=== PATIENT | female | born 1995 | race Caucasian/White ===

== ENCOUNTER 2022-04-14 14:40 | Outpatient (CLI) | payer MEDICAID, SELFPAY ==
[2022-04-14 15:22] VITALS: BP 124/86; PULSE 95; O2SAT 98
[2022-04-14 15:23] VITALS: TEMP 36.6; O2SAT 98
[2022-04-14 15:39] VITALS: BMI 33.6
[2022-04-14 15:51] LABS: Absolute Lymphocyte Count 2.45 X10^3/uL (0.83-4.51); Absolute Neutrophil Count 5.8 X10^3/uL (2.0-7.7); Basophil# 0.02 X10^3/uL; Basophil% 0.2 % (0-1); Eosinophil# 0.07 X10^3/uL; Eosinophils% 0.7 % (0-5); Hematocrit 35.8 % (37-47); Lymphocyte # 2.45 X10^3/ul (0.83-4.51); Mean Corp Hgb Conc 33.5 g/dL (32-36); Mean Corpuscular Hgb 30.1 pg (27.0-32.0); Mean Corpuscular Volume 89.7 fL (81-99); Mean Platelet Vol. 9.7 fl (6.2-12.0); Monocyte# 1.07 X10^3/uL; Monocyte% 11.3 % (0-10); NRBC Flagged by Analyzer 0 % (0-5); Neutrophil # 5.78 X10^3/uL (2.7-7.7); Neutrophil % 61.3 % (47-70); Platelet Count 219 K/mm3 (150-450); RBC Distribution Width SD 38.9 fl (35.1-43.9); Red Blood Count 3.99 M/mm3 (4.2-5.4); White Blood Count 9.4 K/mm3 (4.4-11.0)
[2022-04-14 16:41] LABS: International Normalized Ratio 1.1; Partial Thromboplast Time 29.5 Seconds (24.1-36.2); Prothrombin Time (Protime)PT. 13.5 SECONDS (11.7-14.9)
[2022-04-14 16:42] LABS: Fibrinogen 417 mg/dl (203-444)
--- NOTE | 2022-04-15 17:55 | OB.TRI.NOTE ---
HPI - General General Date of Admission: 04/14/22 Date of Service: 04/14/22 Chief Complaint: fall in HPI Narrative VINITA HERNANDEZ, is a 26 F 3 para 2 at 32-2/7 weeks presented status post fall. She arrived to labor and delivery for observation. Labs were normal. Maternal Data Information Final ADRIANA: 06/07/22 Gestational age: 32 2/7 PFSH PFSH Home Medications famotidine 20 mg tablet 20 mg PO PRN PRN Acid Reflux 04/14/22 [History Last Taken 04/13/22 21:00] jetajkan-flk-Bb-FA 1 mg tablet 1 tab PO DAILY Check with primary doctor 04/14/22 [History Last Taken 04/11/22 10:00] Allergy/AdvReac Type Severity Reaction Status Date / Time Penicillins [PCN] Allergy Hives Verified 04/14/22 15:41 tramadol Allergy Hives Verified 04/14/22 15:41 NST FHR Rate Baby A Baseline: 1101-120 Variability:: Moderate Accelerations:: 15 x 15 Decelerations:: Variable NST Reactive:: Yes FHR Category:: Category I (for > 20 min before d/c) Uterine Activity:: rare ctxs Assessment & Plan (1) 32 weeks gestation of : PLAN: Plan 32 weeks multigravida status post fall. heart tones are category 1. Patient was discharged home to follow-up in the office as scheduled or as needed. Return for signs of symptoms of labor or other concerns.
== END 2022-04-14 19:25 | disposition home or self-care (01) ==
LOC: WP 15:03 → WPOUT 15:06 → WP 15:06
PROVIDERS: Visit Provider Obstetrics & Gynecology
DX: Z04.3 Encounter for examination and observation following other accident (principal); O36.8330 Maternal care for abnormalities of the fetal heart rate or rhythm, third trimester, not applicable or unspecified; Z3A.32 32 weeks gestation of pregnancy
CPT/HCPCS: 36415; 59025; 59050; 85025; 85384; 85610; 85730; 99218; G0378

== ENCOUNTER 2022-05-30 15:45 | Outpatient (CLI) | payer MEDICAID, SELFPAY ==
[2022-05-30 16:06] VITALS: BMI 36.8
[2022-05-30 16:19] VITALS: BP 124/81; PULSE 100; TEMP 36.9; O2SAT 98
[2022-05-30 17:15] LABS: ROM Internal Control Test YES-OK TO RESULT pt. (Internal QC); ROM Patient Test Negative (Negative)
[2022-06-02 09:55] VITALS: TEMP 37.1
[2022-06-02 09:56] VITALS: BP 137/97; PULSE 88
--- NOTE | 2022-06-20 10:22 | OB.TRI.PN ---
Progress Notes Progress Note: at 38w6d.Presented for leakage of fluid. Infrequent contractions. Good movement Laboratory Studies: Laboratory Tests 05/30/22 Range/Units 16:23 Vag Amniotic Fld Detect Negative (Negative) ROM plus negative NST reactive category 1 Assessment & Plan (1) Vaginal discharge: (2) Term : PLAN: Plan no signs of labor D/C home
== END 2022-05-30 18:20 | disposition home or self-care (01) ==
LOC: WPOUT 15:51 → WP 15:52
PROVIDERS: Referring Provider Advanced Practice Midwife; Visit Provider Advanced Practice Midwife
DX: O99.891 Other specified diseases and conditions complicating pregnancy (principal); N89.8 Other specified noninflammatory disorders of vagina; Z3A.38 38 weeks gestation of pregnancy
CPT/HCPCS: 84112; 59025; 59050 ×2; G0378 ×2; 99218

== ENCOUNTER 2022-06-02 09:45 | Inpatient (IN) | payer MEDICAID, SELFPAY ==
[2022-06-02] VITALS (64 sets, daily range): BP systolic 113–148; BP diastolic 60–97; PULSE 73–100; RESP 18; TEMP 36.5–37.3; O2SAT 97–100; BMI 37.0
[2022-06-02] MEDS: LACTATED RINGERS 500 ML 999 ML IV ×2 (10:25→12:55)
[2022-06-02 10:53] LABS: Absolute Lymphocyte Count 2.25 X10^3/uL (0.83-4.51); Absolute Neutrophil Count 7.7 X10^3/uL (2.0-7.7); Basophil# 0.02 X10^3/uL; Basophil% 0.2 % (0-1); Eosinophil# 0.06 X10^3/uL; Eosinophils% 0.5 % (0-5); Hematocrit 37.3 % (37-47); Hemoglobin 12.6 g/dL (12.0-15.0); Lymphocyte # 2.25 X10^3/ul (0.83-4.51); Lymphocyte % 20.4 % (19-41); Mean Corp Hgb Conc 33.8 g/dL (32-36); Mean Corpuscular Volume 85.7 fL (81-99); Mean Platelet Vol. 10.4 fl (6.2-12.0); NRBC Flagged by Analyzer 0 % (0-5); Neutrophil # 7.67 X10^3/uL (2.7-7.7); Neutrophil % 69.4 % (47-70); Platelet Count 231 K/mm3 (150-450); RBC Distribution Width CV 12.8 % (11.6-14.6); RBC Distribution Width SD 39.5 fl (35.1-43.9); Red Blood Count 4.35 M/mm3 (4.2-5.4); White Blood Count 11.1 K/mm3 (4.4-11.0)
[2022-06-02] MEDS: Lactated Ringers 1,000 ML 200 ML IV (10:57)
[2022-06-02 11:02] LABS: Prothrombin Time (Protime)PT. 12.4 SECONDS (11.7-14.9)
[2022-06-02 11:03] LABS: Partial Thromboplast Time 27.4 Seconds (24.1-36.2)
[2022-06-02 11:11] LABS: Amphetamine Urine VISTA NEGATIVE (<1000 ng/mL); Barbiturate Urine VISTA NEGATIVE (< 200 ng/mL); Benzodiazepine Urine VISTA NEGATIVE (< 200 ng/mL); Cocaine Urine VISTA NEGATIVE (< 300 ng/mL); Creatinine, Urine (random) < 13.00 mg/dL (NO RANGE EST.); Ecstacy Urine VISTA NEGATIVE (< 500 ng/mL); Methadone Urine VISTA NEGATIVE (< 300 ng/mL); PCP Urine VISTA NEGATIVE (< 25 ng/mL); Protein, Urine (Random) < 6.0 mg/dL (<11.9); THC Urine VISTA NEGATIVE (< 50 ng/mL); Vista UDS pH Range 6
[2022-06-02 11:13] LABS: AST(SGOT) 13 U/L (15-37); Alanine Aminotransfer ALT/SGPT 14 U/L (13-56); Creatinine, Serum 0.67 mg/dL (0.55-1.02); EST Glomerular Filtration Rate 113 mL/min (>60); Est Glom Filt Rate - Afr Amer 137 mL/min (>60); Estimated Creatinine Clearance 105.26 ml/min; Uric Acid 3.2 mg/dL (2.6-6.0)
[2022-06-02] MEDS: fentaNYL-bupivacaine (epidural) 100 ML BAG EPIDURAL (12:22)
--- NOTE | 2022-06-02 12:31 | PCM.HP.OB ---
HPI - General General Date of Admission: 06/02/22 Date of Service: 06/02/22 Chief Complaint: labor HPI Narrative VINITA HERNANDEZ, is a 26 F who presents in labor. Has had 2 prior vaginal deliveries. Was a transfer of care late in this from [place]. has been uncomplicated. BP's mild range on admission but pt uncomfortable. No symptoms of pre e. Labs normal on admission. [facility] Medical History (Updated 06/02/22 @ 12:[address] Charla Cartagena, ) Gestational diabetes History of pre-term labor depression Scoliosis Home Medications famotidine 20 mg tablet 20 mg PO BID heart burn 04/14/22 [History Last Taken 06/02/22 08:00] zjlszowj-djj-Fz-FA 1 mg tablet 1 tab PO DAILY Check with primary doctor 04/14/22 [History Last Taken 05/29/22 08:00] vitamin M22-[id number] factor 1,000 iu OTHER DAILY 06/02/22 [History Last Taken Unknown] Allergy/AdvReac Type Severity Reaction Status Date / Time Penicillins [PCN] Allergy Hives Verified 06/02/22 11:28 tramadol Allergy Hives Verified 06/02/22 11:28 Social History Smoking Status: Never smoker History Elective abortions Hx Para 2 Spontaneous abortions Hx # Term Pregnancies Ectopic pregnancies Hx # Pregnancies Multiple births # of living children NST FHR Rate Baby A FHR Category:: Category I Vital Signs Vital Signs Vital Signs: 06/02/22 09:56 06/02/22 09:56 06/02/22 09:58 Temperature 98.2 F Temperature Source Pulse Rate 84 Blood Pressure BP Systolic BP Diastolic Pulse Ox 100 06/02/22 09:55 06/02/22 09:55 06/02/22 10:13 Temperature 98.2 F Temperature Source Temporal Pulse Rate Blood Pressure 137/90 H BP Systolic 137 BP Diastolic 90 Pulse Ox 06/02/22 10:13 06/02/22 10:43 06/02/22 10:43 Temperature Temperature Source Pulse Rate 83 82 Blood Pressure 135/91 H BP Systolic 135 BP Diastolic 91 Pulse Ox 06/02/22 11:42 06/02/22 11:42 06/02/22 11:54 Temperature Temperature Source Pulse Rate 90 87 Blood Pressure 134/88 H BP Systolic 134 BP Diastolic 88 Pulse Ox 06/02/22 11:54 06/02/22 11:56 06/02/22 11:57 Temperature 98.2 F Temperature Source Pulse Rate Blood Pressure 131/92 H BP Systolic 131 BP Diastolic 92 Pulse Ox 100 06/02/22 11:57 06/02/22 11:59 06/02/22 11:59 Temperature Temperature Source Pulse Rate 88 86 Blood Pressure BP Systolic BP Diastolic Pulse Ox 99 06/02/22 12:04 06/02/22 12:04 06/02/22 12:09 Temperature Temperature Source Pulse Rate 88 Blood Pressure 123/94 H BP Systolic 123 BP Diastolic 94 Pulse Ox 99 06/02/22 12:09 06/02/22 12:09 06/02/22 12:14 Temperature Temperature Source Pulse Rate 93 83 Blood Pressure BP Systolic BP Diastolic Pulse Ox 98 06/02/22 12:14 06/02/22 12:16 06/02/22 12:16 Temperature Temperature Source Pulse Rate 100 Blood Pressure 140/97 H BP Systolic 140 BP Diastolic 97 Pulse Ox 98 06/02/22 12:19 06/02/22 12:19 06/02/22 12:20 Temperature Temperature Source Pulse Rate 100 Blood Pressure 135/86 H BP Systolic 135 BP Diastolic 86 Pulse Ox 99 06/02/22 12:20 06/02/22 12:24 06/02/22 12:24 Temperature Temperature Source Pulse Rate 90 92 Blood Pressure BP Systolic BP Diastolic Pulse Ox 100 06/02/22 12:30 06/02/22 12:30 06/02/22 12:29 Temperature Temperature Source Pulse Rate 89 Blood Pressure 148/68 H BP Systolic 148 BP Diastolic 68 Pulse Ox 99 Weight Weight: 209 lb 7.026 oz Body Mass Index (BMI) 37.0 Physical Exam Const alert and no apparent distress General Appearance: cooperative Narrative: Cvx 6/90/-2, already ruptured for clear fluid on exam Labs Labs Labs: Blood Type A POSITIVE Antibody Screen NEGATIVE Hct 37.3 % (37-47) Hgb 12.6 g/dL (12.0-15.0) Assessment & Plan (1) 39 weeks gestation of : PLAN: Admit for routine intrapartum care Epidural for pain control GBS neg Pelvis adequate and EFW expected to be < 4500 g Anticipate vaginal delivery (2) Active labor at term: (3) Multiparous: (4) History of marijuana use: PLAN: UDS on admission (5) Elevated blood pressure reading: PLAN: Likely secondary to pain. Labs WNL on admission. No pre e symptoms
[2022-06-02] MEDS: Mag Hydrox/Al Hydrox/Simeth 30 ML UDC PO (14:30)
[2022-06-02] MEDS: Oxytocin 30 units/NS 500 ml 30 UNITS/500 ML IV.SOLN 334 UNITS IV (15:10)
--- NOTE | 2022-06-02 15:15 | EX.PCM.OBRPT ---
Vaginal Delivery Maternal Presentation Maternal Presentation: Spontaneous Rupture of Membranes Maternal Presentation: Active labor Operative Information Date of Procedure: 06/02/22 Pre-Operative Diagnosis: Active Labor Post-Operative Diagnosis: Surgery / Procedure Performed: Spontaneous Vaginal Delivery Type of Anesthesia: Epidural Estimated Blood Loss: 200 ml Time of Delivery: 15:07 Findings Description of Procedure: Progressed to anterior lip and called by nursing for delivery. Patient with increased pelvic pressure. Epidural for pain management. of viable male over intact perineum. APGARS 8,9. head delivered with body forthcoming. CAN x1 loose delivered through. mouth and nares suctioned for secretions, strong cry. Cord clamped and cut by FOB after pulsations ceased. Pitocin started for active 3rd stage management. Placenta delivered intact 3 vessel cord via niraj. Perineum inspected and revealed intact. vaginal sweep completed. Sponge and instrument count correct. Fundus firm, EBL 200ml. Mom and baby stable, planning to breastfeed. Family bonding well. notified of delivery. . Presentation: DAPHNE Amniotic Membrane Rupture Type: Spontaneous Cord Vessel Description: 3 Vessels Cord Entanglement: Around neck x 1, loose Nuchal Cord Compression: Without compression Infant A Gender: Male (1 minute): 8 (5 minute): 9 Delayed Cord Clamping: Yes Post Vaginal Delivery Medications Given After Delivery: IV Pitocin Episiotomy Description: None Laceration: None Complication Complications: None
[2022-06-02] MEDS: 0.9% Saline Lock 10 ML Syringe IV (16:40)
[2022-06-02] MEDS: Acetaminophen 500 MG Tablet 1000 MG PO (16:49)
[2022-06-02] MEDS: Ibuprofen 600 MG Tablet PO (18:12)
[2022-06-03] VITALS (13 sets, daily range): BP systolic 117–134; BP diastolic 60–87; PULSE 79–96; RESP 16–18; TEMP 36.3–37.2; O2SAT 96–98
[2022-06-03] MEDS: Acetaminophen 500 MG Tablet 1000 MG PO ×3 (00:55→13:51)
[2022-06-03] MEDS: Ibuprofen 600 MG Tablet PO ×3 (00:55→13:50)
[2022-06-03 06:36] LABS: Hematocrit 32.4 % (37-47); Hemoglobin 10.4 g/dL (12.0-15.0); Mean Corp Hgb Conc 32.1 g/dL (32-36); Mean Corpuscular Hgb 28.3 pg (27.0-32.0); Mean Platelet Vol. 10.7 fl (6.2-12.0); Platelet Count 194 K/mm3 (150-450); RBC Distribution Width CV 12.7 % (11.6-14.6); RBC Distribution Width SD 40.5 fl (35.1-43.9); Red Blood Count 3.68 M/mm3 (4.2-5.4); White Blood Count 10.3 K/mm3 (4.4-11.0)
--- NOTE | 2022-06-03 07:22 | PN.OBGYN_ITS ---
Subjective Subjective Pt is doing well. Breast-feeding without complaints. Lochia is normal. She is ambulating and voiding without difficulty. Tolerating regular diet. She denies chest pain, shortness of breath, lightheadedness, dizziness. Objective Data Objective Data Vital Signs: Vital Signs Temp Pulse Resp BP Pulse Ox O2 Del Method 98.8 F 80 16 117/65 97 Room Air 06/03/22 05:24 06/03/22 05:25 06/03/22 01:02 06/03/22 05:25 06/03/22 05:24 06/03/22 01:02 Oxygen Delivery Method Room Air Weight: 209 lb 7.026 oz Body Mass Index (BMI) 37.0 Intake & Output: Intake and Output for Last 24 Hours 06/01/22 06/02/22 06/03/22 23:59 23:59 23:59 Intake Total 2890.00 / 2890.00 Output Total 1600 / 1600 Balance 1290.00 / 1290.00 Lab / Micro Data Result Diagrams: 06/03/22 05:35 06/02/22 10:25 Labs: Laboratory Results - last 24 hr 06/02/22 10:25: WBC 11.1 H, RBC 4.35, Hgb 12.6, Hct 37.3, MCV 85.7, MCH 29.0, MCHC 33.8, RDW Std Deviation 39.5, RDW Coeff of Keely 12.8, Plt Count 231, MPV 10.4, Immature Gran % (Auto) 0.500, Neut % (Auto) 69.4, Lymph % (Auto) 20.4, Travis % (Auto) 9.0, Eos % (Auto) 0.5, Baso % (Auto) 0.2, Absolute Neuts (auto) 7.7, Absolute Lymphs (auto) 2.25, Nucleated RBC % 0 06/02/22 10:25: Blood Type A POSITIVE, Antibody Screen NEGATIVE 06/02/22 10:25: PT 12.4, INR 1.0, APTT 27.4 06/02/22 10:25: U Random Total Protein < 6.0, Urine Creatinine < 13.00, Protein/Creatinin Ratio TNP 06/02/22 10:25: Creatinine 0.67, Estim Creat Clear Calc 105.26, Est GFR (MDRD) Af Amer 137, Est GFR (MDRD) Non-Af 113, Uric Acid 3.2, AST 13 L, ALT 14 06/02/22 10:25: Urine Opiates Screen NEGATIVE, Urine Methadone Screen NEGATIVE, Ur Barbiturates Screen NEGATIVE, Ur Phencyclidine Scrn NEGATIVE, Ur Amphetamines Screen NEGATIVE, MDMA (Ecstasy) Screen NEGATIVE, U Benzodiazepines Scrn NEGATIVE, Urine Cocaine Screen NEGATIVE, U Cannabinoids Screen NEGATIVE, Ur Drug Screen Comment 06/03/22 05:35: WBC 10.3, RBC 3.68 L, Hgb 10.4 L, Hct 32.4 L, MCV 88.0, MCH 28.3, MCHC 32.1 D, RDW Std Deviation 40.5, RDW Coeff of Keely 12.7, Plt Count 194, MPV 10.7 Micro: Microbiology 06/02/22 10:25 Nasal Secretion SARS-CoV-2 Antigen (Rapid) - Final Assessment & Plan (1) Vaginal delivery: PLAN: Pt is day 1 from a vaginal delivery. Meeting milestones to go home. She desires to go home. Discharge instructions reviewed.
--- NOTE | 2022-06-03 07:30 | DCINST_ITS ---
Discharge Instructions Diet Discharge Diet: No restrictions Activity Discharge Activity: May Shower May resume sexual activity in: 6 weeks Weight Bearing Status: Weight bearing as tolerated Lifting Restrictions: nothing heavier than baby Dressing / Incision Call your doctor if you observe: Fever of 101 or Higher, Coldness, Increased Pain, Numbness or Tingling, Change in Color, Inability to urinate, Inability to have a bowel movement, Using more than 1 pad per hour, Shortness of breath, Dizziness, Fainting spells, Swelling in the ankles, Chest pain, Increased palpitations (irregular heartbeat), Calf discomfort and Uncontrolled pain Cleanse incision/area with: Soap & Water Follow Up Care When: 6 week visit Test Results: Test results from this visit will be discussed in further detail at your follow- up appointment, if applicable. Discharge Plan Admission Admit Date/Time: 06/02/22 09:45 Primary Reason for Your Visit: delivery Attending Provider: Pearl Malik Instructions Patient Instructions: After a Vaginal Discharge Orders/Prescriptions Prescriptions: New ibuprofen 600 mg tablet 600 mg PO Q6H PRN (Reason: pain) Qty: 30 0RF Discontinued famotidine 20 mg tablet 20 mg PO BID 1 mg Tablet 1 tab PO DAILY vitamin [id number] factor 1,000 iu OTHER DAILY Rx Instructions: takes po daily Disposition Disposition (needs filled in before D/C Order can be placed): Home, Self Care
--- NOTE | 2022-06-03 10:13 | NURSING ---
Pt called this RN to room for clot passed in the toilet, half dollar sized clot noted. Instructed to notify RN if another clot is passed and provided education on clot size when pt is dicharged.
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
--- NOTE | 2022-06-04 13:40 | CASEMGMT ---
Social Work Labor and Delivery Called [facility] children services at [phone] and spoke with Leandra in the intake department. Referral given due to substance exposed in utero based off of records indicating a November 25, 2021 positive drug screen. Brief maternal and infant history is reported including MOB's reports of cessation of marijuana during this and family history of children services with first child. Negative drug screen at delivery and pending meconium for baby. Reported maternal history of depression. Will monitor for meconium drug screen results and if positive call children services back. Otherwise if negative no additional phone call to children services needed, per conversation with Leandra. -Lashell Gomez, STEWART, BEHAVIORAL MODIFICATION ASSISTANT *This note was generated with Invidio dictation software. It may contain incorrect words, spelling, and punctuation that were not noted in review of the chart prior to signing*
== END 2022-06-03 17:55 | disposition home or self-care (01) | DRG 560 ==
PROVIDERS: Obstetrics & Gynecology; Admitting Provider Advanced Practice Midwife; Visit Provider Advanced Practice Midwife
DX: O42.92 Full-term premature rupture of membranes, unspecified as to length of time between rupture and onset of labor (principal); Z37.0 Single live birth; O99.324 Drug use complicating childbirth; F12.99 Cannabis use, unspecified with unspecified cannabis-induced disorder; R03.0 Elevated blood-pressure reading, without diagnosis of hypertension; O26.893 Other specified pregnancy related conditions, third trimester; O69.81X0 Labor and delivery complicated by cord around neck, without compression, not applicable or unspecified; Z3A.39 39 weeks gestation of pregnancy; Z87.59 Personal history of other complications of pregnancy, childbirth and the puerperium
CPT/HCPCS: 59025; 59050; 80307; 82565; 82570; 84112; 84156; 84450; 84460; 84550; 85025; 85027; 85610; 85730; 86850; 86900; 86901; 87426; 99218; J7120; A4216; G0378

== ENCOUNTER 2023-08-05 13:15 | Outpatient (CLI) | payer MEDICAID, SELFPAY ==
[2023-08-05 13:32] VITALS: BP 126/71; PULSE 101; TEMP 36.5
[2023-08-05 13:35] VITALS: BMI 38.2
--- NOTE | 2023-08-05 14:17 | OB.TRI.NOTE ---
HPI - General General Date of Service: 08/05/23 HPI Narrative VINITA HERNANDEZ, is a 28 F @ 30.4 weeks who presents c/o contractions since 6:30 am- reports some are painful. pt reports no VB. states had some Leaking but thinks it was urine as her bladder was full at that time and has had no further leaking since that time. pt denies dysuria, fever, diarrhea or other concerns. pt reports delivered first child early but that was because she was Induced not because she went into labor on her own. [facility] Medical History (Updated 08/05/23 @ 14:[address] Francheska Heard MD) Chlamydia Gestational diabetes Herpes simplex antibody positive History of marijuana use History of pre-term labor Multiparous depression PTSD (post-traumatic stress disorder) Scoliosis Vaginal delivery Home Medications famotidine 20 mg tablet (Pepcid) 20 mg PO BID 08/05/23 [History Last Taken 08/05/23 12:00 20 mg] mhnuymnv-lsr-Lx-FA 1 mg tablet 1 tab PO DAILY 08/05/23 [History Last Taken 08/04/23 08:00 1 TAB] Allergy/AdvReac Type Severity Reaction Status Date / Time Penicillins [PCN] Allergy Hives Verified 08/05/23 13:43 tramadol Allergy Hives Verified 08/05/23 13:43 Social History Smoking Status: Never smoker History Elective abortions Hx Para 2 Spontaneous abortions Hx # Term Pregnancies Ectopic pregnancies Hx # Pregnancies Multiple births # of living children Physical Exam Narrative Gen: female in NAD ABd: Gravid, non tender VE: Closed/Thick/High NST FHR Rate Baby A Baseline: 140 Variability:: Moderate Accelerations:: 10 x 10 Decelerations:: None NST Reactive:: Yes and Appropriate for gestational age FHR Category:: Category I Uterine Activity:: irregular Assessment & Plan (1) 30 weeks gestation of : (2) contractions: PLAN: Plan @ 30.4 weeks, contractions 1) FFN and ROM plus sent 2) UA sent 3) Increase PO fluids 4) monitor FHR/TOCO 5) causes of contractions reviewed with Patient and - will await results and decide plan of care
[2023-08-05 14:19] LABS: Bacteria 0 SEEN /hpf (None Seen); Mucous, Urine 0 SEEN /hpf (<or=2+); Red Blood Cells-Urine 0 SEEN /hpf (0-5); White Blood Cells 0 SEEN /hpf (0-5)
[2023-08-05 14:30] LABS: Color, Urine Yellow (Yellow); Glucose, Dipstick Normal (Normal); Leukocyte Esterase-Dipstick 25 /ul (Negative); Nitrite-Dipstick Negative (Negative); Occult Blood-Urine Negative /ul (Negative); Protein-Dipstick Negative (Negative); Urine Bilirubin Dipstick Negative (Negative); Urine Clarity Clear (Clear); Urine Urobilinogen Normal (Normal)
[2023-08-05 14:31] LABS: Ketone-Dipstick 150 mg/dl (Negative)
[2023-08-05 14:36] LABS: Squamous Epithelial Cells - UA 10-25 SEEN /hpf (5-10)
[2023-08-05 14:42] LABS: ROM Internal Control Test YES-OK TO RESULT pt. (Internal QC); ROM Patient Test Negative (Negative); Record Kit Lot#, ROM+ K1409
[2023-08-05 14:49] LABS: Fetal Fibronectin Negative
--- NOTE | 2023-08-05 14:55 | OB.TRI.PN_ITS ---
Progress Notes Date of Service: 08/05/23 Progress Note: labs resulted- c/w dehydration. will dc patient home with follow up in the office as scheduled. Laboratory Studies: Laboratory Tests 08/05/23 08/05/23 Range/Units 14:10 14:00 Urine Color Yellow (Yellow) Urine Clarity Clear (Clear) Urine pH 7.0 (5.0 - 8.0) Ur Specific [place] 1.010 (1.002-1.030) Urine Protein Negative (Negative) mg/dl Urine Glucose (UA) Normal (Normal) mg/dl Urine Ketones 150 A* (Negative) mg/dl Urine Occult Blood Negative (Negative) /ul Urine Nitrite Negative (Negative) Urine Bilirubin Negative (Negative) mg/dL Urine Urobilinogen Normal (Normal) mg/dl Ur Leukocyte Esterase 25 H (Negative) /ul Urine RBC 0 SEEN (0-5) /hpf Urine WBC 0 SEEN (0-5) /hpf Ur Squamous Epith Cells 10-25 SEEN (5-10) /hpf Urine Bacteria 0 SEEN (None Seen) /hpf Urine Mucus 0 SEEN (<or=2+) /hpf Vag Amniotic Fld Detect Negative (Negative) Fibronectin Negative
--- NOTE | 2023-08-07 01:16 | OB.TRI.NOTE ---
HPI - General General Date of Admission: 08/07/23 Date of Service: 08/07/23 Chief Complaint: contractions HPI Narrative VINITA HERNANDEZ, is a 28 F who presents at 30w4d with contractions. No lof or bv. Good FM. PFSH PFSH Medical History (Updated 08/05/23 @ 14:[address] Francheska Heard MD) Chlamydia Gestational diabetes Herpes simplex antibody positive History of marijuana use History of pre-term labor Multiparous depression PTSD (post-traumatic stress disorder) Scoliosis Vaginal delivery Home Medications famotidine 20 mg tablet (Pepcid) 20 mg PO BID 08/05/23 [History Last Taken 08/05/23 12:00 20 mg] umriylei-sof-Qq-FA 1 mg tablet 1 tab PO DAILY 08/05/23 [History Last Taken 08/04/23 08:00 1 TAB] Allergy/AdvReac Type Severity Reaction Status Date / Time Penicillins [PCN] Allergy Hives Verified 08/05/23 13:43 tramadol Allergy Hives Verified 08/05/23 13:43 Social History Smoking Status: Never smoker History Elective abortions Hx Para 2 Spontaneous abortions Hx # Term Pregnancies Ectopic pregnancies Hx # Pregnancies Multiple births # of living children NST FHR Rate Baby A Baseline: 130 Variability:: Moderate Accelerations:: 15 x 15 Decelerations:: None NST Reactive:: Yes Uterine Activity:: no regular ctx's Assessment & Plan (1) contractions: PLAN: FFN neg ROM neg Cvx unchanged D/c home with return precautions (2) 30 weeks gestation of :
== END 2023-08-05 15:08 | disposition home or self-care (01) ==
LOC: WPOUT 13:17 → WP 13:18
PROVIDERS: Obstetrics & Gynecology; Referring Provider Obstetrics & Gynecology; Visit Provider Obstetrics & Gynecology
DX: O47.03 False labor before 37 completed weeks of gestation, third trimester (principal); Z3A.30 30 weeks gestation of pregnancy
CPT/HCPCS: 59025; 59050; 81001; 82731; 84112; 99221; G0378

== ENCOUNTER 2023-09-21 15:15 | Outpatient (CLI) | payer MEDICAID, SELFPAY ==
[2023-09-21] VITALS (8 sets, daily range): BP systolic 123–144; BP diastolic 81–90; PULSE 83–91; TEMP 36.9; BMI 39.9
[2023-09-21 16:04] LABS: Hematocrit 34.7 % (37-47); Hemoglobin 11.5 g/dL (12.0-15.0); Mean Corp Hgb Conc 33.1 g/dL (32-36); Mean Corpuscular Hgb 29.9 pg (27.0-32.0); Mean Corpuscular Volume 90.1 fL (81-99); Mean Platelet Vol. 10.5 fl (6.2-12.0); Platelet Count 184 K/mm3 (150-450); RBC Distribution Width CV 13.9 % (11.6-14.6); RBC Distribution Width SD 45.2 fl (35.1-43.9); Red Blood Count 3.85 M/mm3 (4.2-5.4)
[2023-09-21 16:12] LABS: Protein, Urine (Random) 20.5 mg/dL (<11.9); Protein:Creat Ratio 203 mg/g CRE (0-200)
[2023-09-21 16:15] LABS: AST(SGOT) 13 U/L (15-37); Alanine Aminotransfer ALT/SGPT 14 U/L (13-56); Creatinine, Serum 0.61 mg/dL (0.55-1.02); EST Glomerular Filtration Rate 125 mL/min (>60); Est Glom Filt Rate - Afr Amer 151 mL/min (>60); Estimated Creatinine Clearance 118.57 ml/min; Uric Acid 3.3 mg/dL (2.6-6.0)
--- NOTE | 2023-09-21 18:27 | OB.TRI.HP_ITS ---
HPI - General General Date of Admission: 09/21/23 Date of Service: 09/21/23 Chief Complaint: elevated BP HPI Narrative VINITA HERNANDEZ, is a presented from the office for eval. Has had mild intermittent [place]. No visual changes. Maternal Data Information Final ADRIANA: 10/10/23 Gestational age: 37 2/7 [facility] Medical History (Updated 09/21/23 @ 18:[address] Connie Osorio MD) Chlamydia Gestational diabetes Herpes simplex antibody positive History of marijuana use History of pre-term labor Multiparous depression PTSD (post-traumatic stress disorder) Scoliosis Vaginal delivery Home Medications famotidine 20 mg tablet (Pepcid) 20 mg PO BID 08/05/23 [History Last Taken 08/05/23 12:00 20 mg] [id number] 1 mg tablet 1 tab PO DAILY 08/05/23 [History Last Taken 08/04/23 08:00 1 TAB] Allergy/AdvReac Type Severity Reaction Status Date / Time Penicillins [PCN] Allergy Hives Verified 09/21/23 17:48 tramadol Allergy Hives Verified 09/21/23 17:48 Social History Smoking Status: Never smoker History Elective abortions Hx Para 2 Spontaneous abortions Hx # Term Pregnancies Ectopic pregnancies Hx # Pregnancies Multiple births # of living children NST FHR Rate Baby A Baseline: 130 Variability:: Moderate Accelerations:: 15 x 15 Decelerations:: None NST Reactive:: Yes FHR Category:: Category I Uterine Activity:: no regular ctxs Assessment & Plan (1) 37 weeks gestation of : PLAN: Blood pressure was mildly elevated when patient appreciated contractions. Otherwise within normal limits. Did not have 2 blood pressures 4 hours apart meeting gestational hypertension diagnosis. Denies any headache now. No evidence of preeclampsia. Discharged home with preeclampsia precautions. Follow-up in the office next week or return if needed. Patient was comfortable with plan.
== END 2023-09-21 17:45 | disposition home or self-care (01) ==
LOC: WPOUT 15:20 → WP 15:20
PROVIDERS: Visit Provider Obstetrics & Gynecology
DX: O99.891 Other specified diseases and conditions complicating pregnancy (principal); R03.0 Elevated blood-pressure reading, without diagnosis of hypertension; Z3A.37 37 weeks gestation of pregnancy
CPT/HCPCS: 36415; 59025; 59050; 82565; 82570; 84156; 84450; 84460; 84550; 85027; 99221; G0378

== ENCOUNTER 2023-10-01 19:50 | Outpatient (CLI) | payer MEDICAID, SELFPAY ==
[2023-10-01 20:11] VITALS: BMI 40.4
[2023-10-01 20:17] VITALS: O2SAT 98
[2023-10-01 20:18] VITALS: BP 132/84; PULSE 85; TEMP 36.9
[2023-10-01 21:06] LABS: ROM Internal Control Test YES-OK TO RESULT pt. (Internal QC); ROM Patient Test Negative (Negative); Record Kit Lot#, ROM+ K1409
--- NOTE | 2023-11-02 18:33 | PCM.PN.CNM ---
Subjective Subjective Presents for possible rupture of membranes. ADRIANA: 10/10/23 Objective Data Objective Data Vital Signs: Vital Signs Temp Pulse BP Pulse Ox 98.4 F 85 132/84 H 98 10/01/23 20:18 10/01/23 20:18 10/01/23 20:18 10/01/23 20:17 Weight: 235 lb 14.314 oz Body Mass Index (BMI) 40.4 NST FHR Rate Baby A Baseline: 125 Variability:: Moderate Accelerations:: 15 x 15 Decelerations:: None Uterine Activity:: None Charges/Coding Addendum Addendum: Assessment completed on 10/03/23 Assessment & Plan (1) Vaginal discharge: PLAN: Plan 1) ROM plus negative 2) False labor 3) D/C home
== END 2023-10-01 21:35 | disposition home or self-care (01) ==
LOC: WPOUT 19:56 → WP 19:57
PROVIDERS: Visit Provider Advanced Practice Midwife
DX: O99.892 Other specified diseases and conditions complicating childbirth (principal); O47.9 False labor, unspecified; N89.8 Other specified noninflammatory disorders of vagina; Z3A.00 Weeks of gestation of pregnancy not specified
CPT/HCPCS: 59025; 59050; 84112

== ENCOUNTER 2023-10-05 11:45 | Inpatient (IN) | payer MEDICAID, SELFPAY ==
[2023-10-05] VITALS (54 sets, daily range): BP systolic 108–149; BP diastolic 57–93; PULSE 73–107; RESP 16; TEMP 36.2–37.2; O2SAT 94–100; BMI 40.4
[2023-10-05] MEDS: Lactated Ringers 1,000 ML 50 ML IV (13:00)
--- NOTE | 2023-10-05 13:06 | PCM.HP.OB ---
HPI - General General Date of Admission: 10/05/23 HPI Narrative VINITA HERNANDEZ, is a 28 F who presents from office for spontaneous onset of labor and CE of 5cm. is complicated by obesity. Maternal Data Information ADRIANA Calculator Estimated Delivery Date Method Current WG Current Estimate 10/10/23 Manual 39w 2d PFSH PFS Medical History Asthma Chlamydia Gestational diabetes Herpes simplex antibody positive History of marijuana use History of pre-term labor Multiparous depression PTSD (post-traumatic stress disorder) Scoliosis Vaginal delivery Home Medications famotidine 20 mg tablet (Pepcid) 20 mg PO BID indigestion 08/05/23 [History Last Taken 10/05/23 08:00] [id number] 1 mg tablet 1 tab PO DAILY 08/05/23 [History Last Taken 10/04/23 08:00] albuterol sulfate 1 puff inhalation asthma 10/01/23 [History Last Taken Unknown] Allergy/AdvReac Type Severity Reaction Status Date / Time Penicillins [PCN] Allergy Hives Verified 10/05/23 12:12 tramadol Allergy Hives Verified 10/05/23 12:12 codeine AdvReac Mild Other Verified 10/05/23 12:13 Social History Smoking Status: Never smoker History Elective abortions Hx Para 3 Spontaneous abortions Hx # Term Pregnancies Ectopic pregnancies Hx # Pregnancies Multiple births # of living children ROS Eyes Eyes: Denies blurry vision, change in vision or spots in vision ENT HEENT: Denies dizziness or headache(s) Cardiovascular Cardiovascular: Denies abdominal pain, chest pain or dyspnea Respiratory/Chest Respiratory/Chest: Denies cough, dyspnea, shortness of breath at rest or shortness of breath with exertion Gastrointestinal Gastrointestinal: Denies abdominal pain, diarrhea or vomiting Genitourinary Genitourinary: Denies change in urinary stream, difficulty urinating or dysuria Musculoskeletal Musculoskeletal: Reports none Integumentary Integumentary: Denies rash Neurologic Neurologic: Denies dizziness, headache(s), memory loss or weakness Psychiatric Psychiatric: Reports none Vital Signs Vital Signs Vital Signs: 10/05/23 12:19 10/05/23 12:19 10/05/23 12:19 Temperature Temperature Source Temporal Pulse Rate 96 Blood Pressure 136/93 H BP Systolic 136 BP Diastolic 93 Pulse Ox 10/05/23 12:19 10/05/23 12:19 Temperature 98.8 F Temperature Source Pulse Rate Blood Pressure BP Systolic BP Diastolic Pulse Ox 98 Weight Weight: 235 lb 7.259 oz Body Mass Index (BMI) 40.4 Physical Exam Const alert, oriented x3 and no apparent distress General Appearance: cooperative Orientation / Consciousness: awake Exam Limitations: no limitations HEENT normocephalic Head and Scalp: normal to inspection Eyes General Eye: normal appearance of both eyes Neck full ROM and no lymphadenopathy Lymph Lymphatic: no lymphadenopathy noted Chest inspection of chest normal Resp normal respiratory effort, normal air movement and clear to auscultation bilaterally Effort and Inspection: able to speak in complete sentences and symmetric chest movement Cardio regular rate and regular rhythm GI normal to inspection, nondistended, normoactive bowel sounds Manual OB Exam: presentation cephalic Back/Spine normal ROM Extremity full ROM and no calf tenderness Skin no rashes or lesions noted General Skin Exam: no breakdown Neuro oriented x3 and CN's II-XII intact bilaterally Psych mental status grossly normal and thought process normal Labs Labs Labs: Blood Type A POSITIVE Antibody Screen NEGATIVE Hct 36.6 % (37-47) L Hgb 11.9 g/dL (12.0-15.0) L Syphilis Total Ab Non-reactive Assessment & Plan (1) Spontaneous onset of labor: (2) Obesity affecting : (3) Multiparous: PLAN: Plan CE- 5/70/-2 GBS negative Admit to labor and delivery Routine labs Start IV and run fluids per orders Start Pitocin at 2mu/min and increase per policy Epidural when indicated Anticipate Dr. Osorio notified of admission and is collaborating physician
[2023-10-05 13:20] LABS: Absolute Lymphocyte Count 1.91 X10^3/uL (0.83-4.51); Basophil# 0.02 X10^3/uL; Basophil% 0.2 % (0-1); Eosinophil# 0.03 X10^3/uL; Eosinophils% 0.3 % (0-5); Hematocrit 36.6 % (37-47); Hemoglobin 11.9 g/dL (12.0-15.0); Lymphocyte # 1.91 X10^3/ul (0.83-4.51); Lymphocyte % 22.1 % (19-41); Mean Corp Hgb Conc 32.5 g/dL (32-36); Mean Corpuscular Hgb 29.7 pg (27.0-32.0); Mean Corpuscular Volume 91.3 fL (81-99); Mean Platelet Vol. 10.6 fl (6.2-12.0); Monocyte# 0.71 X10^3/uL; Monocyte% 8.2 % (0-10); NRBC Flagged by Analyzer 0 % (0-5); Neutrophil # 5.95 X10^3/uL (2.7-7.7); Neutrophil % 68.7 % (47-70); Platelet Count 187 K/mm3 (150-450); RBC Distribution Width CV 13.9 % (11.6-14.6); RBC Distribution Width SD 46.6 fl (35.1-43.9); Red Blood Count 4.01 M/mm3 (4.2-5.4); White Blood Count 8.7 K/mm3 (4.4-11.0)
[2023-10-05] MEDS: Oxytocin 15 Units/NS 250ml 15 UNITS/250 ML IV.SOLN 2 UNITS IV (13:22)
[2023-10-05 13:55] LABS: Syphilis Antibodies Non-reactive
[2023-10-05] MEDS: CHLORHEXIDINE GLUC 2% CLOTH 1 EACH TOWELETTE TOPICAL (14:03)
[2023-10-05] MEDS: LACTATED RINGERS 500 ML 999 ML IV (14:18)
[2023-10-05] MEDS: fentaNYL-bupivacaine (epidural) 100 ML BAG EPIDURAL (15:44)
--- NOTE | 2023-10-05 16:56 | PCM.PN.CNM ---
Subjective Subjective Patient seen at bedside. Comfortable with epidural anesthesia. Objective Data Objective Data Vital Signs: Vital Signs Temp Pulse BP Pulse Ox 97.9 F 80 131/86 H 100 10/05/23 16:34 10/05/23 16:34 10/05/23 16:34 10/05/23 16:34 Weight: 235 lb 7.259 oz Body Mass Index (BMI) 40.4 Intake & Output: Intake and Output for Last 24 Hours 10/03/23 10/04/23 10/05/23 23:59 23:59 23:59 Intake Total 565 / 565 Balance 565 / 565 Lab / Micro Data 10/05/23 13:00 Labs: Laboratory Results - last 24 hr 10/05/23 05:36: Syphilis Total Ab Non-reactive, Blood Type A POSITIVE, Antibody Screen NEGATIVE 10/05/23 13:00: WBC 8.7, RBC 4.01 L, Hgb 11.9 L, Hct 36.6 L, MCV 91.3, MCH 29.7, MCHC 32.5, RDW Std Deviation 46.6 H, RDW Coeff of Keely 13.9, Plt Count 187, MPV 10.6, Immature Gran % (Auto) 0.500, Neut % (Auto) 68.7, Lymph % (Auto) 22.1, [place] % (Auto) 8.2, Eos % (Auto) 0.3, Baso % (Auto) 0.2, Absolute Neuts (auto) 6.0, Absolute Lymphs (auto) 1.91, Nucleated RBC % 0 Assessment & Plan (1) Obesity affecting : (2) Spontaneous onset of labor: (3) Multiparous: PLAN: Plan Cat. 1 tracing, Contractions every 1-3 minutes and palpates relaxed in between contractions CE /-1 Pitocin at 2 mu /min Continue present plan of care Anticipate
[2023-10-05] MEDS: Ondansetron 4 MG/2 ML Vial IV (18:20)
[2023-10-05] MEDS: Acetaminophen 500 MG Tablet PO (18:20)
--- NOTE | 2023-10-05 18:59 | EX.PCM.OBRPT ---
Assessment & Plan (1) (spontaneous vaginal delivery): Maternal Data Information ADRIANA Calculator Estimated Delivery Date Method Current WG Current Estimate 10/10/23 Manual 39w 2d Vaginal Delivery Maternal Presentation Maternal Presentation: at 39.2 weeks that presented in spontaneous labor. Type of Induction: Pitocin (Augmention) and Amniotomy (Augmentation) Operative Information Date of Procedure: 10/05/23 Pre-Operative Diagnosis: Term gestation, Spontaneous onset of labor Post-Operative Diagnosis: , Live male infant Surgery / Procedure Performed: Spontaneous Vaginal Delivery Type of Anesthesia: Epidural Estimated Blood Loss: 250 Time of Delivery: 18:36 Findings Description of Procedure: Patient feeling pressure and found to be complete dilation and +1 station. With minimal maternal effort, head delivered over intact perineum followed immediately by anterior shoulder and remainder of body with minimal downward traction < 5 seconds. Vigorous male placed on maternal abdomen and was attended to by nursing staff. Pitocin IV started for active management of the third stage of labor. 3 vessel cord was clamped and cut by FOB after delay and infant placed immediately skin to skin. Placenta delivered spontaneously and intact. Fundus firm at U. Vagina and perineum intact. Vaginal sweep completed by me. EBL 250 cc. APGARS 8/9. Dr. Osorio notified of delivery. Presentation: Vertex Amniotic Membrane Rupture Type: Artificial Amniotic Fluid Description: Clear Placental Delivery Description: Spontaneous Placenta Disposition: [facility] Cord Vessel Description: 3 Vessels Cord Entanglement: None Infant A Gender: Male (1 minute): 8 (5 minute): 9 Delayed Cord Clamping: Yes Post Vaginal Delivery Medications Given After Delivery: IV Pitocin Episiotomy Description: None Laceration: None Complication Complications: None
[2023-10-05] MEDS: Oxytocin 15 Units/NS 250ml 15 UNITS/250 ML IV.SOLN 83 UNITS IV (19:07)
[2023-10-06] MEDS: Acetaminophen 500 MG Tablet 1000 MG PO ×3 (03:10→18:40)
[2023-10-06 03:41] VITALS: BP 129/79; PULSE 81; RESP 16; TEMP 36.6
[2023-10-06] MEDS: Ibuprofen 600 MG Tablet PO ×2 (06:05→12:54)
--- NOTE | 2023-10-06 07:38 | PCM.DC.SUM ---
Providers Date of Admission: 10/05/23 Reason For Visit: VAGINAL DELIVERY Diagnosis Discharge Diagnosis (1) (spontaneous vaginal delivery): Status: Acute Code(s): O80 - Encounter for full-term uncomplicated delivery Medications at Discharge Home Medications famotidine 20 mg tablet (Pepcid) 20 mg PO BID indigestion 08/05/23 [id number] 1 mg tablet 1 tab PO DAILY 08/05/23 albuterol sulfate 1 puff inhalation asthma 10/01/23 Hospital Course Operations None Procedures None Summary of Care Provided Minutes Spent on Discharge: 20 Hospital Course: Patient had . Hospital course was uneventful. Physical Exam Const alert and no apparent distress General Appearance: cooperative and comfortable Exam Limitations: no limitations HEENT normocephalic Eyes General Eye: normal appearance of both eyes Neck full ROM General: normal visual inspection Chest Chest: symmetrical chest wall rise Resp normal respiratory effort and normal air movement Effort and Inspection: symmetric chest movement Auscultation: clear to auscultation bilaterally Cardio regular rate and regular rhythm GI normal to inspection, nondistended, normoactive bowel sounds Back/Spine normal ROM Extremity full ROM and no calf tenderness General Extremity: normal exam except as noted Skin no rashes or lesions noted Neuro CN's II-XII intact bilaterally Psych mental status grossly normal Weight / BMI Weight Weight: 235 lb 7.259 oz Body Mass Index (BMI) 40.4 ABG / Lab / Microbiology Data 10/05/23 13:00 Laboratory: Laboratory Results - last 24 hr 10/05/23 05:36: Syphilis Total Ab Non-reactive, Blood Type A POSITIVE, Antibody Screen NEGATIVE 10/05/23 13:00: WBC 8.7, RBC 4.01 L, Hgb 11.9 L, Hct 36.6 L, MCV 91.3, MCH 29.7, MCHC 32.5, RDW Std Deviation 46.6 H, RDW Coeff of Keely 13.9, Plt Count 187, MPV 10.6, Immature Gran % (Auto) 0.500, Neut % (Auto) 68.7, Lymph % (Auto) 22.1, [place] % (Auto) 8.2, Eos % (Auto) 0.3, Baso % (Auto) 0.2, Absolute Neuts (auto) 6.0, Absolute Lymphs (auto) 1.91, Nucleated RBC % 0 D/C Instructions Discharge Diet: No restrictions May resume sexual activity in: 6-8 weeks Weight Bearing Status: Weight bearing as tolerated Call your doctor if you observe: Fever of 101 or Higher, Inability to urinate, Using more than 1 pad per hour, Shortness of breath, Chest pain, Calf discomfort and Uncontrolled pain Please Follow Up With: Vero Liu CNM When: 2 weeks virtual visit/ 6 weeks in office Meaningful Use Info Meaningful Use Diagnoses (Choose all that apply): None applicable Discharge Plan Admission Admit Date/Time: 10/05/23 11:45 Primary Reason for Your Visit: Labor and Delivery Attending Provider: Vero Liu Discharge Orders/Prescriptions Prescriptions: No Action famotidine [Pepcid] 20 mg tablet 20 mg PO BID [id number]-[id number] 1 mg tablet 1 tab PO DAILY albuterol sulfate 1 puff inhalation Referrals / Follow Up: Vero Liu CNM [Med Staff - Adv Practice Prof] - Disposition Disposition (needs filled in before D/C Order can be placed): Home, Self Care
[2023-10-06 07:57] VITALS: BP 132/80; PULSE 82; RESP 16; TEMP 36.4
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
[2023-10-06 12:45] VITALS: BP 132/89; PULSE 80; RESP 18; TEMP 36.8
[2023-10-06 16:21] VITALS: BP 126/79; PULSE 82; RESP 18; TEMP 36.7
== END 2023-10-06 19:30 | disposition home or self-care (01) | DRG 560 ==
PROVIDERS: Admitting Provider Advanced Practice Midwife; Visit Provider Advanced Practice Midwife
DX: O99.214 Obesity complicating childbirth (principal); Z37.0 Single live birth; Z3A.39 39 weeks gestation of pregnancy; Z62.810 Personal history of physical and sexual abuse in childhood; Z87.59 Personal history of other complications of pregnancy, childbirth and the puerperium
CPT/HCPCS: 59025; 59050; 85025; 86780; 86850; 86900; 86901; 99221; J7120; G0378; J2405

== ENCOUNTER → 2023-11-29 | Outpatient (CLI) | payer MEDICAID, SELFPAY | END | disposition home or self-care (01) | LOC: SDC 06-05 08:17 | PROVIDERS: Referring Provider Obstetrics & Gynecology; Visit Provider Obstetrics & Gynecology | DX: R69 Illness, unspecified (principal) ==

== ENCOUNTER 2023-12-23 10:57 | Day surgery (SDC) | payer MEDICAID, SELFPAY ==
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
[2023-12-23 11:25] VITALS: BP 118/83; PULSE 75; RESP 16; TEMP 36.6; O2SAT 100; BMI 35.5
--- NOTE | 2023-12-23 11:35 | PCM.OPRPT ---
Report of Operation Date of Procedure: 12/23/23 Pre-Operative Diagnosis: desires sterilization Post-Operative Diagnosis: same Surgery/Procedure Performed:: Laparoscopic bilateral salpingectomy Description of Surgical Findings:: Normal Tubes and ovaries Bilaterally Surgeon: Francheska Heard senior lead java developer: None Type of Anesthesia: General and Local Special Medications: 0.5%marcaine Specimen's removed: bilateral fallopian tubes Drains: none Estimated Blood Loss (mL): <5cc Fluids Replaced: 800cc Description of Procedure: after informed consent was obtained patient was taken to the operating room she was placed in supine position she was given anesthesia. She was then placed in the [facility] stirrups and she was prepped and draped in normal sterile fashion. Bladder was drained prior to the start of procedure. At this time attention was turned to the vaginal portion where weighted speculum placed at posterior fornix vagina single-tooth tenaculum was used to gently grasp the internal the cervix. uterus was gently sounded to approximately 8 cm. Uterine manipulator was placed without difficulty. Legs then placed in parallel with the abdomen the tenaculum and the weighted speculum were removed. 2 towel clamps were placed at level of umbilicus. Marcaine was injected infraumbilical and a small incision was made. The 5 mm trocar was placed under direct visualization. CO2 gas was used to insufflate the intra-abdominal cavity. Upon inspection no gross abnormalities appreciated- the uterus tubes and ovaries appeared to be normal. At this time then the LLQ and RLQ ports were placed First Marcaine was injected and small incision was made a knife and the 5 mm trocars were placed. At this time then tubes were traced back to the fimbriated ends. Enseal was used to coagulate and ligate along mesosalpinx bilaterally until tubes removed completely. Good hemostasis was appreciated. At this time procedure was deemed complete successful. The gas was desufflated on from the intra-abdominal cavity. The trochars were removed. Skin was closed using 4-0 Monocryl in a subcutaneous fashion. Dermabond glue was placed. Instrument lap and needle counts were correct ?2. The uterine manipulator was removed. Vaginal sweep was performed it was negative. There were no complications anticipated normal postoperative course for this patient. Grafts/Implants Used: none Procedure Start Time: 12:17 Procedure Stop Time: 12:32 Complications none Admit VTE Documentation VTE Present on Admission: Yes VTE Mechan Device Prophylaxis: SCD's Reason prophylaxis not ordered:: Procedure Not Indicated
--- NOTE | 2023-12-23 11:37 | DCINST_ITS ---
Discharge Instructions Diet Discharge Diet: No restrictions Activity May resume sexual activity in: 2 weeks Lifting Restrictions: 20-25 lbs Dressing / Incision Call your doctor if your incision/area has: Continuous Slow Oozing, Sudden Increased Bleeding, Increased Pain/ Swelling, Increased Redness, Foul Smelling Discharge and Swelling at the incision site Call your doctor if you observe: Fever of 101 or Higher, Inability to urinate, Inability to have a bowel movement, Using more than 1 pad per hour and Uncontrolled pain Additional Dressing/Incision Instructions:: You have skin glue over your incision sites, do not pick off. You may shower and let the soap and water run over the incision sites and dab dry. Follow Up Care Please Follow Up With: Francheska Heard MD When: 1-2 weeks post OP if you need an appointment please call [phone] Test Results: Test results from this visit will be discussed in further detail at your follow- up appointment, if applicable. Discharge Plan Admission Attending Provider: Francheska Heard Primary Care Provider: Care Physician,Maritza Primary Discharge Orders/Prescriptions Prescriptions: No Action cholecalciferol (vitamin D3) [Vitamin D3] 10 mcg (400 unit) capsule 20 mcg PO DAILY mecobalamin (vitamin B12) 500 mcg tablet,chewable 500 mcg PO DAILY famotidine [Pepcid] 20 mg tablet 20 mg PO BID [id number] 1 mg tablet 1 tab PO DAILY albuterol sulfate 1 puff inhalation Q4H PRN PRN (Reason: asthma) Referrals / Follow Up: Care PhysicianMaritza Primary [Primary Care Provider] - Disposition Disposition (needs filled in before D/C Order can be placed): Home, Self Care
[2023-12-23] MEDS: Lactated Ringers 1,000 ML 15 ML IV (11:43)
[2023-12-23 11:55] LABS: Hematocrit 38.8 % (37-47); Hemoglobin 12.4 g/dL (12.0-15.0); Mean Corpuscular Volume 90.9 fL (81-99); Mean Platelet Vol. 9.4 fl (6.2-12.0); Platelet Count 267 K/mm3 (150-450); RBC Distribution Width CV 13.2 % (11.6-14.6); RBC Distribution Width SD 43.3 fl (35.1-43.9); Red Blood Count 4.27 M/mm3 (4.2-5.4); White Blood Count 8.1 K/mm3 (4.4-11.0)
[2023-12-23 12:01] LABS: Internal QC Validated? YES +Cl - CLEAR BKGD; Pregnancy, Urine Negative Negative
[2023-12-23] MEDS: Bupivacaine 0.5% PF 10 ML VIAL (12:24)
--- NOTE | 2023-12-23 12:25 | FALS_PTH ---
PATHOLOGY RESULTS PATIENT: VINITA HERNANDEZ [place] [facility] [id number] AGE/SX: 28/F ROOM: RE12/23/[address]: Dr. Francheska Alford MD : [id number] BED: DIS: 12/23/2023 SPEC #: [id number] RECD: 12/23/23 13:37 STATUS: MALCOLM NEWMANNellie #: [id number] DANY: 12/23/23 12:[address]: Francheska Alford DEPT: SURGICAL PATHOLOGY RECD BY: Nalini Larson ENTERED: 12/26/23 10:10 SP TYPE: FALL TUBES OT DR: No Primary Care Phys Tissues: Fallopian tube Procedures: Surgery Specimen Level II Surgery Specimen Level IV HEADER OPERATION: Laparoscopic salpingectomy PRE-OP DIAGNOSIS: Elective sterilization TISSUE SUBMITTED: Bilateral fallopian tubes MICROSCOPIC DIAGNOSIS Right and left fallopian tubes, bilateral salpingectomies: Complete cross-sections of two fallopian tubes. One fallopian tube with benign paratubal cysts. AM:rocío 12/27/2023 MICROSCOPIC DESCRIPTION Slides are reviewed. GROSS DESCRIPTION Received in fixative is one container labeled with the patient's name and designated bilateral fallopian tubes. The specimen consists of two fallopian tubes with an average length of 8.0 cm and has an average diameter of 0.5 cm. Both fallopian tubes have normal fimbriated ends. No mass lesions are identified. Bias Binding Folder sections are submitted in two cassettes with each cassette containing one fallopian tube. / AM:rocío 12/26/2023 TC:5 CPT: 82203, 73189
[2023-12-23 12:50] VITALS: BP 118/83; PULSE 76; RESP 16; TEMP 36.4; O2SAT 93
[2023-12-23 12:55] VITALS: BP 111/71; BP 118/83; PULSE 73; RESP 16; O2SAT 94
[2023-12-23 13:00] VITALS: BP 111/70; BP 118/83; PULSE 62; RESP 16; O2SAT 93
[2023-12-23 13:05] VITALS: BP 111/54; BP 118/83; PULSE 58; RESP 16; TEMP 36.3; O2SAT 98
[2023-12-23 13:41] VITALS: BP 118/83
== END 2023-12-23 13:48 | disposition home or self-care (01) ==
LOC: SDC 10:59 → AC 11:01
PROVIDERS: Anesthesiology; Referring Provider Obstetrics & Gynecology; Visit Provider Obstetrics & Gynecology
PROC: (CPT 58661; principal; 2023-12-23 12:10)
DX: Z30.2 Encounter for sterilization (principal); N83.8 Other noninflammatory disorders of ovary, fallopian tube and broad ligament; K21.9 Gastro-esophageal reflux disease without esophagitis; F17.290 Nicotine dependence, other tobacco product, uncomplicated; Z79.899 Other long term (current) drug therapy; Z62.810 Personal history of physical and sexual abuse in childhood
CPT/HCPCS: 58661; 00840; 81025; 85027; 88302; 88305; J7120; C1760; J2405